=== PATIENT | male | born 1950 | race Caucasian/White ===

== ENCOUNTER 2021-04-05 21:57 | Emergency (ER) | payer MEDICARE ==
[~2021-04-05] VITALS: Ht 172.7 cm; Wt 113.6 kg
[2021-04-05] MEDS ORDERED: CARV12.5 PO (22:29)
[2021-04-05] MEDS ORDERED: PLAV1TAB2 PO (22:29)
[2021-04-05] MEDS ORDERED: ASPI81CH33 PO (22:29)
[2021-04-05] MEDS ORDERED: GLIP10TA PO (22:29)
[2021-04-05] MEDS ORDERED: XARE20TA PO (22:29)
[2021-04-05] MEDS ORDERED: METF10004 PO (22:29)
[2021-04-05] MEDS ORDERED: SITA50TAB PO (22:29)
[2021-04-05] MEDS ORDERED: ATOR1TAB21 PO (22:29)
[2021-04-05] MEDS ORDERED: LISI20TA33 PO (22:29)
[2021-04-06 00:48] LABS: BASO % 0.5 % (0.0-1.0); EOS % 0.1 % (0.0-3.0); HEMOGLOBIN 14.6 g/dl (13.5-17.5); LYMPH # 0.7 10^3/uL (1.5-5.0); LYMPH % 9.4 % (24.0-44.0); MEAN CORPUSCULAR HGB CONC 33.2 g/dl (32.0-36.5); MEAN CORPUSCULAR VOLUME 87.5 fl (80.0-96.0); MONO # 0.7 10^3/uL (0.0-0.8); MONO % 8.8 % (2.0-8.0); NEUTROPHILS % 80.7 % (36.0-66.0); PLATELET COUNT, AUTOMATED 179 10^3/uL (150-450); RED BLOOD COUNT 5.03 10^6/uL (4.30-6.10); WHITE BLOOD COUNT 7.4 10^3/uL (4.0-10.0)
--- NOTE | 2021-04-06 00:55 | REPVR ---
PROCEDURE INFORMATION: Exam: XR Chest Exam date and time: 04/06/2021 12:45 AM Age: 70 years old Clinical indication: Fever TECHNIQUE: Imaging protocol: XR of the chest. Views: 1 view. COMPARISON: No relevant prior studies available. FINDINGS: Lungs: No definite focal infiltrates. Pleural spaces: Unremarkable. No pleural effusion. No pneumothorax. Heart/Mediastinum: Mild cardiomegaly in view of AP and lordotic projection. Bones/joints: Unremarkable. Soft tissues: There are generous overlying soft tissues. IMPRESSION: 1. Mild cardiomegaly. 2. Otherwise negative lordotic chest. Electronically signed by: Laureano Huertas On 04/06/2021 00:55:21 AM
[2021-04-06 01:20] LABS: ALBUMIN 3.4 GM/DL (3.2-5.2); ALT/SGPT 17 U/L (12-78); BILIRUBIN,DIRECT 0.3 MG/DL (0.0-0.2); BILIRUBIN,TOTAL 1.1 MG/DL (0.2-1.0); BLOOD UREA NITROGEN 12 MG/DL (7-18); CALCIUM LEVEL 9.1 MG/DL (8.8-10.2); CARBON DIOXIDE LEVEL 25 MEQ/L (21-32); CHLORIDE LEVEL 105 MEQ/L (98-107); CREATININE FOR GFR 0.83 MG/DL (0.70-1.30); GLOMERULAR FILTRATION RATE > 60.0 (>42); GLUCOSE, FASTING 169 MG/DL (70-100); LIPASE 80 U/L (73-393); POTASSIUM SERUM 4.2 MEQ/L (3.5-5.1); SODIUM LEVEL 138 MEQ/L (136-145); TOTAL PROTEIN 6.6 GM/DL (6.4-8.2)
[2021-04-06] MEDS: CARVedilol 12.5 MG TAB PO ONE (01:25)
[2021-04-06 01:28] VITALS: BP 171/81
--- NOTE | 2021-04-06 02:51 | REPVR ---
PROCEDURE INFORMATION: Exam: CT Abdomen And Pelvis Without Contrast Exam date and time: 04/06/2021 1:54 AM Age: 70 years old Clinical indication: Fever and other: Hematuria; Additional info: Fever, hematuria TECHNIQUE: Imaging protocol: Computed tomography of the abdomen and pelvis without contrast. Radiation optimization: All CT scans at this facility use at least one of these dose optimization techniques: automated exposure control; mA and/or kV adjustment per patient size (includes targeted exams where dose is matched to clinical indication); or iterative reconstruction. COMPARISON: CR Chest, 1 view 04/06/2021 12:31 AM FINDINGS: Lungs: Minimal bibasilar bullous change. Heart: Minimal pericardial effusion. Liver: Normal. No mass. Gallbladder and bile ducts: Status post cholecystectomy. Pancreas: Normal. No ductal dilation. Spleen: Normal. No splenomegaly. Adrenal glands: Normal. No mass. Kidneys and ureters: Minimal nonobstructing bilateral renal calculi. No ureteral calculi. No hydronephrosis. There are bilateral renal cysts measuring up to 3.9 cm on the left with a Hounsfield measurement of 12. These appear to reflect simple cysts. No follow-up imaging is recommended. Stomach and bowel: There is colonic diverticulosis without evidence of diverticulitis. Appendix: A normal appendix is seen. Intraperitoneal space: Unremarkable. No free air. No significant fluid collection. Vasculature: There is mild calcification of the abdominal aorta with extension into the iliac arteries. Lymph nodes: Unremarkable. No enlarged lymph nodes. Urinary bladder: Unremarkable as visualized. Reproductive: Unremarkable as visualized. Bones/joints: Unremarkable. No acute fracture. Soft tissues: Unremarkable. IMPRESSION: 1. Minimal pericardial effusion. 2. Status post cholecystectomy. 3. Minimal nonobstructing bilateral renal calculi. No ureteral calculi are evident and there is no evidence of obstructive uropathy. 4. Colonic diverticulosis without diverticulitis. 5. Otherwise negative CT abdomen/pelvis. COMMENTS: Consistent with the [employer]'s Incidental Findings Committee white paper (J Am Hazel [employer]iol 2018): Any incidental renal lesion less than 1 cm or classified as too small to characterize, or any incidental cystic renal lesion characterized as simple-appearing, is likely benign. No follow-up imaging is recommended for these lesions per consensus recommendations based on imaging criteria. Electronically signed by: Laureano Huertas On 04/06/2021 02:50:47 AM
[2021-04-06 03:30] VITALS: BP 158/72
== END 2021-04-06 03:50 | disposition home or self-care (01) ==
LOC: M ED 21:57
DX: R50.9 Fever, unspecified (principal); R53.1 Weakness; I48.91 Unspecified atrial fibrillation; E11.9 Type 2 diabetes mellitus without complications; I10 Essential (primary) hypertension; E78.5 Hyperlipidemia, unspecified